=== PATIENT | female | born 1970 | race Hispanic/Latino ===

== ENCOUNTER 2019-08-11 01:52 | Emergency (ER) | payer SELFPAY ==
[2019-08-11 02:40] LABS: #Basophils 0.1 thou/uL (0.0-0.2); #Eosinphils 0.4 thou/uL (0.0-0.7); #Lymphocytes 1.9 thou/uL (1.20-3.40); #Monocytes 0.9 thou/uL (0.11-0.59); #Neutrophils 7.2 thou/uL (1.40-6.50); %Basophils 0.6 % (0.0-1.0); %Lymphocytes 18.5 % (21.0-51.0); %Monocytes 8.2 % (0.0-10.0); %Neutrophils 68.7 % (42.0-75.0); Hemoglobin 12.1 g/dL (12.0-16.0); Mean Corpuscular Hemoglobin 27.2 pg (27.0-31.0); Mean Corpuscular Volume 85.2 fL (78.0-98.0); Mean Platelet Volume 10.4 fL (7.4-10.4); Platelet Count 201 thou/uL (130-400); RBC Distribution Width 13.4 % (11.5-14.5); Red Blood Cell (RBC) Count 4.46 mill/uL (4.20-5.40); White Blood Cell (WBC) Count 10.5 thou/uL (4.8-10.8)
[2019-08-11 02:59] LABS: ALT (SGPT) 20 U/L (8-55); AST (SGOT) 17 U/L (5-34); Albumin 3.8 g/dL (3.5-5.0); Alkaline Phosphatase 98 U/L (40-110); Anion Gap 12 mmol/L (10-20); BUN (Urea Nitrogen) 10 mg/dL (7.0-18.7); Bilirubin, Total 0.7 mg/dL (0.2-1.2); Calc. Creatinine Clearance 0 mL/min (70-130); Carbon Dioxide 27 mmol/L (22-29); Chloride 103 mmol/L (98-107); Estimated GFR-MDRD 86; Globulin 4.5 g/dL (2.4-3.5); Glucose 174 mg/dL (70-105); Lipase 27 U/L (8-78); Protein, Total 8.3 g/dL (6.0-8.3); Sodium 138 mmol/L (136-145)
[2019-08-11] MEDS ORDERED: Acetaminophen 500 MG TAB ONE (03:21)
[2019-08-11] MEDS ORDERED: Lidocaine Viscous Sol 2% 15 ml UD Cup ONE (03:47)
[2019-08-11] MEDS ORDERED: Mag-Al 1200 mg/1200 mg/30 ML UDCUP ONE (03:47)
[2019-08-11 03:52] LABS: Pregnancy Test - Urine (BHCG) Negative (Negative); Pregu Control Background? CLEAR/WHITE (CLR/WHITE); Pregu Control Bar Appear? YES (CONTROL BAR)
[2019-08-11 03:57] LABS: Bilirubin Negative (Negative); Blood, Urine Negative (Negative); Clarity Turbid (Clear); Glucose, Urine (Dipstick) Normal (Negative); Ketone, Urine Negative (Negative); Leukocyte 75 Leu/uL (Negative); Nitrite Negative (Negative); Protein, Urine (Dipstick) 10 mg/dL (Neg-Trace); Specific Gravity, Urine 1.022 (1.002-1.036); WBC/HPF 21-50 HPF (0-3)
[2019-08-11 04:00] LABS: Bacteria/HPF 1+ HPF (None Seen)
[2019-08-11 04:04] LABS: Specific Gravity 1.022 (1.002-1.036)
== END 2019-08-11 04:34 | disposition home or self-care (01) ==
LOC: ERS 01:52
DX: N39.0 Urinary tract infection, site not specified (principal); R10.13 Epigastric pain; E66.9 Obesity, unspecified; I10 Essential (primary) hypertension; E11.9 Type 2 diabetes mellitus without complications; M06.9 Rheumatoid arthritis, unspecified; M10.9 Gout, unspecified; Z86.711 Personal history of pulmonary embolism; F41.9 Anxiety disorder, unspecified; F32.9 Major depressive disorder, single episode, unspecified; Z87.891 Personal history of nicotine dependence; Z79.84 Long term (current) use of oral hypoglycemic drugs; Z79.899 Other long term (current) drug therapy
CPT/HCPCS: 36415; 80053; 81003; 81015; 81025; 83690; 85025; 99284

== ENCOUNTER 2019-08-30 19:54 | Emergency (ER) | payer OTHER ==
[2019-08-30] MEDS ORDERED: Mag-Al 1200 mg/1200 mg/30 ML UDCUP ONE (20:24)
[2019-08-30] MEDS ORDERED: Ondansetron PF 4 MG/2 ML Vial ONE ×2 (20:24→23:29)
[2019-08-30] MEDS ORDERED: Lidocaine Viscous Sol 2% 15 ml UD Cup ONE (20:24)
[2019-08-30 20:30] LABS: #Eosinphils 0.1 thou/uL (0.0-0.7); #Lymphocytes 1.8 thou/uL (1.20-3.40); #Monocytes 0.6 thou/uL (0.11-0.59); #Neutrophils 7.6 thou/uL (1.40-6.50); %Basophils 0.3 % (0.0-1.0); %Eosinophils 1.4 % (0.0-10.0); %Lymphocytes 17.9 % (21.0-51.0); %Monocytes 6.2 % (0.0-10.0); %Neutrophils 74.3 % (42.0-75.0); Hemoglobin 14.1 g/dL (12.0-16.0); Mean Corpuscular HGB CONC 32.4 g/dL (32.0-36.0); Mean Corpuscular Hemoglobin 27.6 pg (27.0-31.0); Mean Corpuscular Volume 85.2 fL (78.0-98.0); Platelet Count 239 thou/uL (130-400); RBC Distribution Width 13.9 % (11.5-14.5); Red Blood Cell (RBC) Count 5.11 mill/uL (4.20-5.40); White Blood Cell (WBC) Count 10.2 thou/uL (4.8-10.8)
[2019-08-30 20:54] LABS: ALT (SGPT) 45 U/L (8-55); AST (SGOT) 39 U/L (5-34); Albumin 4.1 g/dL (3.5-5.0); Alkaline Phosphatase 98 U/L (40-110); Anion Gap 18 mmol/L (10-20); BUN (Urea Nitrogen) 16 mg/dL (7.0-18.7); Bilirubin, Total 0.9 mg/dL (0.2-1.2); Calc. Creatinine Clearance 0 mL/min (70-130); Calcium 9.4 mg/dL (7.8-10.44); Carbon Dioxide 21 mmol/L (22-29); Chloride 104 mmol/L (98-107); Estimated GFR-MDRD 80; Globulin 5.6 g/dL (2.4-3.5); Glucose 148 mg/dL (70-105); Lipase 20 U/L (8-78); Potassium 4.5 mmol/L (3.5-5.1); Protein, Total 9.7 g/dL (6.0-8.3); Sodium 138 mmol/L (136-145)
[2019-08-30 21:01] LABS: Bacteria/HPF 3+ HPF (None Seen); Bilirubin Negative (Negative); Blood, Urine 1+ (Negative); Clarity Clear (Clear); Glucose, Urine (Dipstick) Normal (Negative); Ketone, Urine Negative (Negative); Leukocyte 25 Leu/uL (Negative); Mucous/LPF 1+ LPF (<2+); Nitrite 2+ (Negative); Pregnancy Test - Urine (BHCG) Negative (Negative); Pregu Control Background? CLEAR/WHITE (CLR/WHITE); Pregu Control Bar Appear? YES (CONTROL BAR); Protein, Urine (Dipstick) 10 mg/dL (Neg-Trace); Specific Gravity 1.025 (1.002-1.036); Specific Gravity, Urine 1.025 (1.002-1.036); Squamous Epithelial 0-3 HPF (0-3); Urobilinogen Normal mg/dL (Less than 2); pH, Urine 5.5 (5.0-9.0)
[2019-08-31 12:25] LABS: SARS-CoV-2 MS2 Positive; SARS-CoV-2 N Gene Negative; SARS-CoV-2 S Gene Negative; SARS-CoV-2 by NAA Not Detected (NotDetected); SARS-CoV-2 orf1ab Negative
== END 2019-08-30 23:35 | disposition home or self-care (01) ==
LOC: ERS 19:54
DX: N39.0 Urinary tract infection, site not specified (principal); Z20.828 Contact with and (suspected) exposure to other viral communicable diseases; E66.01 Morbid (severe) obesity due to excess calories; I10 Essential (primary) hypertension; M79.7 Fibromyalgia; E11.9 Type 2 diabetes mellitus without complications; M06.9 Rheumatoid arthritis, unspecified; M10.9 Gout, unspecified; F41.9 Anxiety disorder, unspecified; F32.9 Major depressive disorder, single episode, unspecified; Z86.711 Personal history of pulmonary embolism; Z87.891 Personal history of nicotine dependence; Z79.899 Other long term (current) drug therapy
CPT/HCPCS: 80053; 81003; 81015; 81025; 83690; 85025; 87077; 87086; 87186; 87635; 93005; 96361; 96374; J2405; U0003

== ENCOUNTER 2020-11-08 14:49 | Outpatient (CLI) | payer OTHER ==
[2020-11-09 00:41] LABS: SARS-CoV-2 PCR by NAA Not Detected (NotDetected)
== END 2020-11-08 14:50 | disposition home or self-care (01) ==
LOC: LABBT 14:49
PROVIDERS: ATTEND Internal Medicine Gastroenterology
DX: Z01.812 Encounter for preprocedural laboratory examination (principal); Z12.11 Encounter for screening for malignant neoplasm of colon; Z20.822 Contact with and (suspected) exposure to COVID-19
CPT/HCPCS: U0003; U0005

== ENCOUNTER 2020-11-11 05:49 | Day surgery (SDC) | payer OTHER ==
[2020-11-10 09:20] VITALS: BMI 74.7
== END 2020-11-11 06:20 | disposition home or self-care (01) ==
LOC: SDC 05:49
PROVIDERS: ATTEND Internal Medicine Gastroenterology
DX: Z12.11 Encounter for screening for malignant neoplasm of colon (principal); Z53.09 Procedure and treatment not carried out because of other contraindication; Z88.5 Allergy status to narcotic agent

== ENCOUNTER 2021-01-04 14:45 | Outpatient (CLI) | payer OTHER ==
[2021-01-05 01:32] LABS: SARS-CoV-2 PCR by NAA Not Detected (NotDetected)
== END 2021-01-04 14:46 | disposition home or self-care (01) ==
LOC: LABBT 14:45
PROVIDERS: ATTEND Internal Medicine Gastroenterology
DX: Z01.812 Encounter for preprocedural laboratory examination (principal); Z12.11 Encounter for screening for malignant neoplasm of colon; Z20.822 Contact with and (suspected) exposure to COVID-19
CPT/HCPCS: U0003; U0005

== ENCOUNTER 2021-01-07 15:36 | Emergency (ER) | payer OTHER ==
[~2021-01-07 15:36] MED LIST: Iopamidol-370 76% 500 ML 1 ML ONE
[2021-01-07 16:13] LABS: #Eosinphils 0.3 thou/uL (0.0-0.7); #Lymphocytes 2.9 thou/uL (1.20-3.40); #Monocytes 0.8 thou/uL (0.11-0.59); #Neutrophils 7.4 thou/uL (1.40-6.50); %Basophils 0.2 % (0.0-1.0); %Eosinophils 2.5 % (0.0-10.0); %Lymphocytes 25.3 % (21.0-51.0); %Monocytes 7.1 % (0.0-10.0); %Neutrophils 64.9 % (42.0-75.0); Hemoglobin 14.3 g/dL (12.0-16.0); Mean Corpuscular HGB CONC 32.6 g/dL (32.0-36.0); Mean Corpuscular Hemoglobin 28.4 pg (27.0-31.0); Mean Corpuscular Volume 87.1 fL (78.0-98.0); Mean Platelet Volume 9.6 fL (7.4-10.4); Platelet Count 221 thou/uL (130-400); RBC Distribution Width 13.7 % (11.5-14.5); Red Blood Cell (RBC) Count 5.02 mill/uL (4.20-5.40); White Blood Cell (WBC) Count 11.4 thou/uL (4.8-10.8)
[2021-01-07 16:54] LABS: ALT (SGPT) 20 U/L (8-55); AST (SGOT) 16 U/L (5-34); Alkaline Phosphatase 107 U/L (40-110); Anion Gap 16 mmol/L (10-20); BUN (Urea Nitrogen) 11 mg/dL (7.0-18.7); Calc. Creatinine Clearance 0 mL/min (70-130); Calcium 9.7 mg/dL (7.8-10.44); Carbon Dioxide 24 mmol/L (22-29); Chloride 105 mmol/L (98-107); Globulin 4.3 g/dL (2.4-3.5); Glucose 109 mg/dL (70-105); Potassium 3.8 mmol/L (3.5-5.1); Protein, Total 8.3 g/dL (6.0-8.3); Sodium 141 mmol/L (136-145)
[2021-01-07] MEDS ORDERED: Acetaminophen 500 MG TAB ONE (18:01)
== END 2021-01-07 18:31 | disposition home or self-care (01) ==
LOC: ERS 15:36
DX: R07.89 Other chest pain (principal); E11.9 Type 2 diabetes mellitus without complications; I10 Essential (primary) hypertension; M10.9 Gout, unspecified; Z86.711 Personal history of pulmonary embolism; F17.210 Nicotine dependence, cigarettes, uncomplicated; Z79.899 Other long term (current) drug therapy; Z79.84 Long term (current) use of oral hypoglycemic drugs; Z79.01 Long term (current) use of anticoagulants
CPT/HCPCS: 36415; 71045; 71275; 80053; 83880; 84484; 85025; 93005; Q9967

== ENCOUNTER 2021-03-06 14:53 | Emergency (ER) | payer OTHER ==
[2021-03-06 16:37] LABS: #Eosinphils 0.4 thou/uL (0.0-0.7); #Lymphocytes 2.1 thou/uL (1.20-3.40); #Monocytes 0.7 thou/uL (0.11-0.59); #Neutrophils 7.7 thou/uL (1.40-6.50); %Basophils 0.1 % (0.0-1.0); %Eosinophils 3.6 % (0.0-10.0); %Lymphocytes 19.6 % (21.0-51.0); %Monocytes 6.4 % (0.0-10.0); %Neutrophils 70.4 % (42.0-75.0); Hemoglobin 14.3 g/dL (12.0-16.0); Mean Corpuscular Hemoglobin 27.7 pg (27.0-31.0); Mean Corpuscular Volume 86.4 fL (78.0-98.0); Platelet Count 212 thou/uL (130-400); RBC Distribution Width 13.4 % (11.5-14.5); Red Blood Cell (RBC) Count 5.15 mill/uL (4.20-5.40); White Blood Cell (WBC) Count 10.9 thou/uL (4.8-10.8)
[2021-03-06 16:57] LABS: ALT (SGPT) 17 U/L (8-55); AST (SGOT) 13 U/L (5-34); Albumin 4.1 g/dL (3.5-5.0); Alkaline Phosphatase 107 U/L (40-110); Anion Gap 16 mmol/L (10-20); BUN (Urea Nitrogen) 18 mg/dL (7.0-18.7); Bilirubin, Total 0.6 mg/dL (0.2-1.2); Calc. Creatinine Clearance 0 mL/min (70-130); Calcium 9.5 mg/dL (7.8-10.44); Carbon Dioxide 25 mmol/L (22-29); Chloride 103 mmol/L (98-107); Globulin 4.2 g/dL (2.4-3.5); Glucose 119 mg/dL (70-105); Potassium 4.2 mmol/L (3.5-5.1); Protein, Total 8.3 g/dL (6.0-8.3); Sodium 140 mmol/L (136-145)
[2021-03-06] MEDS ORDERED: Cyclobenzaprine 10 MG TAB ONE (17:48)
[2021-03-06] MEDS ORDERED: Ibuprofen 200 MG TAB ONE (17:48)
== END 2021-03-06 18:30 | disposition home or self-care (01) ==
LOC: ERS 14:53
DX: M54.12 Radiculopathy, cervical region (principal); E11.9 Type 2 diabetes mellitus without complications; M10.9 Gout, unspecified; F10.129 Alcohol abuse with intoxication, unspecified
CPT/HCPCS: 36415; 71045; 80053; 84484; 85025; 93005; 94760

== ENCOUNTER 2021-08-08 22:36 | Observation (INO) | payer OTHER ==
[2021-08-08] MEDS ORDERED: Ondansetron PF 4 MG/2 ML Vial ONE (22:48)
[2021-08-08 23:01] LABS: #Basophils 0.1 thou/uL (0.0-0.2); #Eosinphils 0.4 thou/uL (0.0-0.7); #Lymphocytes 2.9 thou/uL (1.20-3.40); #Neutrophils 7.1 thou/uL (1.40-6.50); %Basophils 0.5 % (0.0-1.0); %Eosinophils 3.1 % (0.0-10.0); %Lymphocytes 25.1 % (21.0-51.0); %Monocytes 9.1 % (0.0-10.0); %Neutrophils 62.2 % (42.0-75.0); Hemoglobin 14.1 g/dL (12.0-16.0); Mean Corpuscular HGB CONC 32.9 g/dL (32.0-36.0); Mean Corpuscular Hemoglobin 28.7 pg (27.0-31.0); Mean Corpuscular Volume 87.2 fL (78.0-98.0); Mean Platelet Volume 10.8 fL (7.4-10.4); Platelet Count 179 thou/uL (130-400); RBC Distribution Width 13.2 % (11.5-14.5); Red Blood Cell (RBC) Count 4.93 mill/uL (4.20-5.40); White Blood Cell (WBC) Count 11.4 thou/uL (4.8-10.8)
[2021-08-08 23:18] LABS: ALT (SGPT) 18 U/L (8-55); AST (SGOT) 14 U/L (5-34); Alkaline Phosphatase 102 U/L (40-110); Anion Gap 15 mmol/L (10-20); BUN (Urea Nitrogen) 11 mg/dL (7.0-18.7); Bilirubin, Total 0.8 mg/dL (0.2-1.2); CK (CPK) 20 U/L (29-168); Calc. Creatinine Clearance 0 mL/min (70-130); Calcium 9.7 mg/dL (7.8-10.44); Carbon Dioxide 23 mmol/L (22-29); Chloride 105 mmol/L (98-107); Estimated GFR 109; Globulin 4.4 g/dL (2.4-3.5); Glucose 103 mg/dL (70-105); Potassium 3.8 mmol/L (3.5-5.1); Protein, Total 8.4 g/dL (6.0-8.3); Sodium 139 mmol/L (136-145)
[2021-08-09] MEDS ORDERED: Acetaminophen 500 MG TAB ONE (01:03)
[2021-08-09] MEDS ORDERED: Ondansetron ODT 4 MG TAB PO PRN (01:21)
[2021-08-09] MEDS ORDERED: Acetaminophen 325 MG TAB PO PRN (01:21)
[2021-08-09] MEDS ORDERED: HumaLOG 300 UNITS/3 ML VIAL SC PRN ×2 (01:21)
[2021-08-09] MEDS ORDERED: Dextrose 50% Abboject 50 ML SYRINGE SLOW IVP PRN (01:21)
[2021-08-09] MEDS ORDERED: Dextrose 5% in Water 1,000 ML IV PRN (01:21)
[2021-08-09] MEDS ORDERED: Dicyclomine 20 MG TAB PO PRN (01:52)
[2021-08-09 02:06] LABS: #Basophils 0.1 thou/uL (0.0-0.2); #Eosinphils 0.4 thou/uL (0.0-0.7); #Lymphocytes 2.6 thou/uL (1.20-3.40); #Monocytes 0.9 thou/uL (0.11-0.59); #Neutrophils 6.9 thou/uL (1.40-6.50); %Eosinophils 3.5 % (0.0-10.0); %Lymphocytes 23.9 % (21.0-51.0); %Monocytes 8.4 % (0.0-10.0); %Neutrophils 63.2 % (42.0-75.0); Hemoglobin 13.1 g/dL (12.0-16.0); Mean Corpuscular HGB CONC 31.1 g/dL (32.0-36.0); Mean Corpuscular Hemoglobin 27.6 pg (27.0-31.0); Mean Corpuscular Volume 88.8 fL (78.0-98.0); Mean Platelet Volume 10.7 fL (7.4-10.4); Platelet Count 181 thou/uL (130-400); RBC Distribution Width 13.3 % (11.5-14.5); Red Blood Cell (RBC) Count 4.76 mill/uL (4.20-5.40); White Blood Cell (WBC) Count 10.9 thou/uL (4.8-10.8)
[2021-08-09 02:31] LABS: Troponin I Less than 0.010 ng/mL (< 0.028)
[2021-08-09 02:42] LABS: Anion Gap 15 mmol/L (10-20); BUN (Urea Nitrogen) 13 mg/dL (7.0-18.7); Calc. Creatinine Clearance 0 mL/min (70-130); Calcium 9.5 mg/dL (7.8-10.44); Carbon Dioxide 24 mmol/L (22-29); Chloride 106 mmol/L (98-107); Estimated GFR 109; Glucose 104 mg/dL (70-105); Potassium 3.8 mmol/L (3.5-5.1); Sodium 141 mmol/L (136-145)
[2021-08-09 03:23] VITALS: BMI 69.5
[2021-08-09] MEDS: SUMAtriptan Succinate 50 MG TAB PO PRN ×2 (05:03→21:11)
[2021-08-09 05:39] LABS: Troponin I Less than 0.010 ng/mL (< 0.028)
[2021-08-09] MEDS: Nicotine 14 MG PATCH TD SCH (06:31)
[2021-08-09] MEDS: metFORMIN 500 MG TAB PO SCH ×2 (07:53→16:18)
[2021-08-09] MEDS: Gabapentin 300 MG CAP PO SCH ×3 (08:41→21:11)
[2021-08-09] MEDS: Apixaban 5 MG TAB PO SCH ×2 (08:42→21:11)
[2021-08-09] MEDS: Furosemide 20 MG TAB PO SCH (08:42)
[2021-08-09] MEDS: busPIRone HCl 10 MG TAB PO SCH ×3 (08:42→21:11)
[2021-08-09] MEDS: Rosuvastatin 10 MG TAB PO SCH (08:42)
[2021-08-09] MEDS: Losartan 25 MG TAB PO SCH (08:42)
[2021-08-09] MEDS: FLUoxetine HCl 20 MG CAP PO SCH (08:42)
[2021-08-09] MEDS ORDERED: Regadenoson 0.4 MG/5 ML SYRINGE ONE (08:45)
[2021-08-09] MEDS ORDERED: hydrALAZINE 20 MG/ML VIAL SLOW IVP SCH (14:00)
[2021-08-09] MEDS ORDERED: Amlodipine 5 MG TAB PO SCH (15:45)
[2021-08-10] MEDS: Nicotine 14 MG PATCH TD SCH (06:11)
[2021-08-10] MEDS: metFORMIN 500 MG TAB PO SCH (08:15)
[2021-08-10] MEDS: Gabapentin 300 MG CAP PO SCH ×2 (08:15→15:13)
[2021-08-10] MEDS: FLUoxetine HCl 20 MG CAP PO SCH ×2 (08:16→08:17)
[2021-08-10] MEDS: Rosuvastatin 10 MG TAB PO SCH (08:16)
[2021-08-10] MEDS: Apixaban 5 MG TAB PO SCH (08:16)
[2021-08-10] MEDS: Furosemide 20 MG TAB PO SCH (08:17)
[2021-08-10] MEDS: Losartan 25 MG TAB PO SCH (08:17)
[2021-08-10] MEDS: busPIRone HCl 10 MG TAB PO SCH ×2 (08:17→15:13)
[2021-08-10] MEDS ORDERED: Amlodipine 5 MG TAB PO SCH (09:00)
[2021-08-10] MEDS ORDERED: Cepastat Lozenges 1 LOZ PO PRN (12:00)
[2021-08-10 15:44] VITALS: BP 137/78; TEMP 97.9
[2021-08-10] MEDS ORDERED: guaiFENesin ER 600 MG TAB PO SCH (21:00)
== END 2021-08-10 17:21 | disposition home or self-care (01) ==
LOC: ERS 22:36 → 2SW 08-09 00:44
PROVIDERS: ADMIT Student in an Organized Health Care Education/Training Program; ATTEND Student in an Organized Health Care Education/Training Program
DX: R07.89 Other chest pain (principal); D72.829 Elevated white blood cell count, unspecified; I10 Essential (primary) hypertension; E78.5 Hyperlipidemia, unspecified; E11.42 Type 2 diabetes mellitus with diabetic polyneuropathy; F17.210 Nicotine dependence, cigarettes, uncomplicated; K58.9 Irritable bowel syndrome, unspecified; G43.909 Migraine, unspecified, not intractable, without status migrainosus; E66.9 Obesity, unspecified; Z68.44 Body mass index [BMI] 60.0-69.9, adult; Z86.711 Personal history of pulmonary embolism; Z86.718 Personal history of other venous thrombosis and embolism; Z79.01 Long term (current) use of anticoagulants; Z79.84 Long term (current) use of oral hypoglycemic drugs; Z79.899 Other long term (current) drug therapy; Z88.5 Allergy status to narcotic agent; Z20.822 Contact with and (suspected) exposure to COVID-19
CPT/HCPCS: 36415; 36416; 71045; 78452; 80048; 80053; 82550; 83690; 83880; 84484; 85025; 85379; 93005; 93017; A9500; G0378; J2405; J2785; U0003; U0005

== ENCOUNTER 2022-05-08 12:51 | Emergency (ER) | payer OTHER ==
[~2022-05-08 12:51] MED LIST changes: -Iopamidol-370 76% 500 ML 1 ML ONE; +Iopamidol-370 76% 500 ML MDV (1 ML CHARGE) ONE
[2022-05-08 13:37] LABS: #Basophils 0.1 thou/uL (0.0-0.2); #Eosinphils 0.2 thou/uL (0.0-0.7); #Lymphocytes 0.6 thou/uL (1.20-3.40); #Monocytes 0.6 thou/uL (0.11-0.59); #Neutrophils 13.7 thou/uL (1.40-6.50); %Basophils 0.4 % (0.0-1.0); %Eosinophils 1.6 % (0.0-10.0); %Lymphocytes 4.1 % (21.0-51.0); %Neutrophils 89.9 % (42.0-75.0); Hemoglobin 12.8 g/dL (12.0-16.0); Mean Corpuscular HGB CONC 32.7 g/dL (32.0-36.0); Mean Corpuscular Hemoglobin 28.6 pg (27.0-31.0); Mean Corpuscular Volume 87.3 fl (78.0-98.0); Mean Platelet Volume 10.3 fL (7.4-10.4); Platelet Count 178 10x3/uL (130-400); RBC Distribution Width 13.3 % (11.5-14.5); Red Blood Cell (RBC) Count 4.49 mill/uL (4.20-5.40); White Blood Cell (WBC) Count 15.2 10x3/uL (4.8-10.8)
[2022-05-08] MEDS ORDERED: Ondansetron PF 4 MG/2 ML Vial ONE (13:58)
[2022-05-08] MEDS ORDERED: Morphine 4 MG/ML VIAL ONE ×2 (13:58→15:07)
[2022-05-08 13:59] LABS: ALT (SGPT) 25 U/L (8-55); AST (SGOT) 20 U/L (5-34); Albumin 4.5 g/dL (3.5-5.0); Alkaline Phosphatase 97 U/L (40-110); Anion Gap 13 mmol/L (10-20); BUN (Urea Nitrogen) 17 mg/dL (7.0-18.7); Bilirubin, Total 0.9 mg/dL (0.2-1.2); Calc. Creatinine Clearance 0 mL/min (70-130); Calcium 9.4 mg/dL (7.8-10.44); Carbon Dioxide 22 mmol/L (22-29); Chloride 106 mmol/L (98-107); Estimated GFR 108; Globulin 4.1 g/dL (2.4-3.5); Glucose 139 mg/dL (70-105); Lipase 18 U/L (8-78); Potassium 3.8 mmol/L (3.5-5.1); Protein, Total 8.6 g/dL (6.0-8.3); Sodium 137 mmol/L (136-145)
[2022-05-08 15:25] LABS: Bilirubin Negative (Negative); Blood, Urine Negative (Negative); Clarity Clear (Clear); Glucose, Urine (Dipstick) Normal (Negative); Ketone, Urine Negative (Negative); Leukocyte Negative Leu/uL (Negative); Nitrite Negative (Negative); Protein, Urine (Dipstick) Negative (Neg-Trace); Specific Gravity, Urine 1.021 (1.002-1.036); Urobilinogen Normal mg/dL (Less than 2); pH, Urine 6.5 (5.0-9.0)
[2022-05-08 15:26] LABS: Pregnancy Test - Urine (BHCG) Negative (Negative); Pregu Control Background? CLEAR/WHITE (CLR/WHITE); Pregu Control Bar Appear? YES (CONTROL BAR)
[2022-05-08] MEDS ORDERED: Metoclopramide HCl 10 MG/2 ML VIAL ONE (18:21)
[2022-05-08] MEDS ORDERED: Ketorolac Tromethamine 30 MG/ML VIAL ONE (18:21)
== END 2022-05-08 21:11 | disposition home or self-care (01) ==
LOC: ERS 12:51
DX: R11.2 Nausea with vomiting, unspecified (principal); R10.13 Epigastric pain; D72.829 Elevated white blood cell count, unspecified; I11.0 Hypertensive heart disease with heart failure; I50.9 Heart failure, unspecified; E11.9 Type 2 diabetes mellitus without complications; F17.210 Nicotine dependence, cigarettes, uncomplicated; Z79.01 Long term (current) use of anticoagulants; Z79.899 Other long term (current) drug therapy; Z79.84 Long term (current) use of oral hypoglycemic drugs
CPT/HCPCS: 36415; 74177; 80053; 81003; 81025; 83605; 83690; 85025; 93005; 96365; 96366; 96375; 96376; J1885; J2270; J2405; J2765; Q9967

== ENCOUNTER 2022-06-13 20:26 | Observation (INO) | payer OTHER ==
[2022-06-13 22:03] LABS: #Eosinphils 0.4 thou/uL (0.0-0.7); #Monocytes 0.9 thou/uL (0.11-0.59); #Neutrophils 6.7 thou/uL (1.40-6.50); %Basophils 0.4 % (0.0-1.0); %Eosinophils 3.4 % (0.0-10.0); %Lymphocytes 24.8 % (21.0-51.0); %Monocytes 8.1 % (0.0-10.0); %Neutrophils 62.9 % (42.0-75.0); Hemoglobin 11.9 g/dL (12.0-16.0); Mean Corpuscular HGB CONC 31.4 g/dL (32.0-36.0); Mean Corpuscular Hemoglobin 26.9 pg (27.0-31.0); Mean Corpuscular Volume 85.6 fl (78.0-98.0); Mean Platelet Volume 12.2 fL (7.4-10.4); Platelet Count 198 10x3/uL (130-400); RBC Distribution Width 14.7 % (11.5-14.5); Red Blood Cell (RBC) Count 4.43 mill/uL (4.20-5.40); White Blood Cell (WBC) Count 10.7 10x3/uL (4.8-10.8)
[2022-06-13 22:19] LABS: BHCG - Serum Negative (NEGATIVE); Pregs Control Background? CLEAR/WHITE (CLR/WHITE); Pregs Control Bar Appear? YES (CONTROL BAR)
[2022-06-13] MEDS ORDERED: Acetaminophen 500 MG TAB ONE (22:33)
[2022-06-13] MEDS ORDERED: Dextrose 5% in Water 1,000 ML IV PRN (23:23)
[2022-06-13] MEDS ORDERED: Dextrose 50% Abboject 50 ML SYRINGE SLOW IVP PRN (23:23)
[2022-06-13] MEDS ORDERED: Ondansetron ODT 4 MG TAB PO PRN (23:48)
[2022-06-13] MEDS ORDERED: Ondansetron PF 4 MG/2 ML Vial IVP PRN (23:48)
[2022-06-13] MEDS ORDERED: Acetaminophen 325 MG TAB PO PRN (23:48)
[2022-06-13] MEDS ORDERED: HumaLOG 300 UNITS/3 ML VIAL SC PRN ×2 (23:49)
[2022-06-13] MEDS ORDERED: Aspirin Chewable 81 MG TAB ONE (23:51)
[2022-06-13] MEDS ORDERED: Morphine 2 MG/ML VIAL SLOW IVP PRN (23:57)
[2022-06-14 00:05] VITALS: BMI 70.8
[2022-06-14] MEDS ORDERED: Nitroglycerin 2% Ointment 1 INCH/1 GM Packet TOP SCH ×2 (00:15→09:00)
[2022-06-14] MEDS ORDERED: Dulaglutide [Trulicity] 0.75 MG/0.5 ML Pen.Injctr SC SCH (00:30)
[2022-06-14 00:32] LABS: ALT (SGPT) 21 U/L (8-55); AST (SGOT) 17 U/L (5-34); Albumin 3.9 g/dL (3.5-5.0); Alkaline Phosphatase 86 U/L (40-110); Anion Gap 16 mmol/L (10-20); BUN (Urea Nitrogen) 24 mg/dL (7.0-18.7); Bilirubin, Total 0.5 mg/dL (0.2-1.2); Calc. Creatinine Clearance 253 mL/min (70-130); Calcium 9.5 mg/dL (7.8-10.44); Carbon Dioxide 18 mmol/L (22-29); Chloride 108 mmol/L (98-107); Estimated GFR 95; Globulin 4.4 g/dL (2.4-3.5); Glucose 113 mg/dL (70-105); Potassium 4.2 mmol/L (3.5-5.1); Protein, Total 8.3 g/dL (6.0-8.3); Sodium 138 mmol/L (136-145)
[2022-06-14] MEDS ORDERED: SUMAtriptan Succinate 50 MG TAB PO PRN (00:38)
[2022-06-14] MEDS ORDERED: QUEtiapine 25 MG TAB PO SCH ×2 (00:45→21:00)
[2022-06-14] MEDS ORDERED: Dicyclomine 20 MG TAB PO SCH (00:45)
[2022-06-14] MEDS ORDERED: Gabapentin 300 MG CAP PO SCH (00:45)
[2022-06-14] MEDS ORDERED: Apixaban 5 MG TAB PO SCH (00:45)
[2022-06-14] MEDS ORDERED: metFORMIN 500 MG TAB PO SCH (00:45)
[2022-06-14 01:42] LABS: Troponin I Less than 0.010 ng/mL (< 0.028)
[2022-06-14 05:14] LABS: #Eosinphils 0.4 thou/uL (0.0-0.7); #Monocytes 0.9 thou/uL (0.11-0.59); %Basophils 0.4 % (0.0-1.0); %Eosinophils 4.6 % (0.0-10.0); %Lymphocytes 33.5 % (21.0-51.0); %Monocytes 8.8 % (0.0-10.0); %Neutrophils 52.4 % (42.0-75.0); Hemoglobin 10.9 g/dL (12.0-16.0); Mean Corpuscular HGB CONC 31.6 g/dL (32.0-36.0); Mean Corpuscular Hemoglobin 27.2 pg (27.0-31.0); Mean Platelet Volume 12.1 fL (7.4-10.4); Platelet Count 201 10x3/uL (130-400); RBC Distribution Width 14.6 % (11.5-14.5); Red Blood Cell (RBC) Count 4.01 mill/uL (4.20-5.40); White Blood Cell (WBC) Count 9.6 10x3/uL (4.8-10.8)
[2022-06-14 05:40] LABS: ALT (SGPT) 17 U/L (8-55); AST (SGOT) 11 U/L (5-34); Albumin 3.7 g/dL (3.5-5.0); Alkaline Phosphatase 83 U/L (40-110); Anion Gap 12 mmol/L (10-20); BUN (Urea Nitrogen) 22 mg/dL (7.0-18.7); Bilirubin, Total 0.4 mg/dL (0.2-1.2); Calc. Creatinine Clearance 295 mL/min (70-130); Calcium 8.9 mg/dL (7.8-10.44); Carbon Dioxide 23 mmol/L (22-29); Cardiac Risk 2.7 (Less than 4.5); Chloride 106 mmol/L (98-107); Cholesterol 125 mg/dl (< 200 Desired); Estimated GFR 107; Globulin 3.6 g/dL (2.4-3.5); Glucose 107 mg/dL (70-105); HDL Cholesterol 47 mg/dL (>60 Neg Risk); LDL Cholesterol, Calculated 60 mg/dL; Potassium 3.9 mmol/L (3.5-5.1); Protein, Total 7.3 g/dL (6.0-8.3); Sodium 137 mmol/L (136-145); Triglycerides 91 mg/dL (Less than 150)
[2022-06-14 05:41] LABS: Troponin I Less than 0.010 ng/mL (< 0.028)
[2022-06-14] MEDS: FLUoxetine HCl 20 MG CAP PO SCH (08:16)
[2022-06-14] MEDS: Gabapentin 300 MG CAP PO SCH ×3 (08:17→20:47)
[2022-06-14] MEDS ORDERED: Rosuvastatin 10 MG TAB PO SCH (09:00)
[2022-06-14] MEDS ORDERED: hydrOXYzine 10 MG TAB PO SCH ×2 (09:00→21:00)
[2022-06-14] MEDS ORDERED: Regadenoson 0.4 MG/5 ML SYRINGE ONE (09:41)
[2022-06-14] MEDS: metFORMIN 500 MG TAB PO SCH ×2 (11:35→17:20)
[2022-06-14] MEDS: Apixaban 5 MG TAB PO SCH ×2 (11:36→20:47)
[2022-06-14] MEDS: Acetaminophen 500 MG TAB PO PRN ×2 (12:00→20:48)
[2022-06-14] MEDS: Amlodipine 5 MG TAB PO SCH (14:48)
[2022-06-14] MEDS: Losartan 25 MG TAB PO SCH (14:49)
[2022-06-14] MEDS: Furosemide 20 MG TAB PO SCH (14:49)
[2022-06-14] MEDS: lamoTRIgine 25 MG TAB PO SCH (14:49)
[2022-06-14] MEDS: Dicyclomine 20 MG TAB PO PRN ×2 (14:55→20:48)
[2022-06-14] MEDS ORDERED: Rosuvastatin 20 MG TAB PO SCH (21:00)
[2022-06-15 04:34] LABS: #Eosinphils 0.4 thou/uL (0.0-0.7); #Monocytes 0.7 thou/uL (0.11-0.59); #Neutrophils 4.5 thou/uL (1.40-6.50); %Basophils 0.3 % (0.0-1.0); %Eosinophils 4.4 % (0.0-10.0); %Lymphocytes 34.9 % (21.0-51.0); %Monocytes 7.8 % (0.0-10.0); %Neutrophils 52.4 % (42.0-75.0); Hemoglobin 11.7 g/dL (12.0-16.0); Mean Corpuscular HGB CONC 30.5 g/dL (32.0-36.0); Mean Corpuscular Hemoglobin 27.1 pg (27.0-31.0); Mean Platelet Volume 11.8 fL (7.4-10.4); Platelet Count 211 10x3/uL (130-400); RBC Distribution Width 14.7 % (11.5-14.5); Red Blood Cell (RBC) Count 4.32 mill/uL (4.20-5.40); White Blood Cell (WBC) Count 8.6 10x3/uL (4.8-10.8)
[2022-06-15 04:44] LABS: Mean Corpuscular Volume 88.9 fl (78.0-98.0)
[2022-06-15] MEDS ORDERED: hydrOXYzine 25 MG TAB PO PRN (07:59)
[2022-06-15] MEDS: Acetaminophen 500 MG TAB PO PRN (09:22)
[2022-06-15] MEDS: Amlodipine 5 MG TAB PO SCH (09:23)
[2022-06-15] MEDS: metFORMIN 500 MG TAB PO SCH ×2 (09:23→15:55)
[2022-06-15] MEDS: Gabapentin 300 MG CAP PO SCH ×2 (09:24→14:54)
[2022-06-15] MEDS: Losartan 25 MG TAB PO SCH (09:25)
[2022-06-15] MEDS: Apixaban 5 MG TAB PO SCH (09:25)
[2022-06-15] MEDS: Furosemide 20 MG TAB PO SCH (09:25)
[2022-06-15] MEDS: FLUoxetine HCl 20 MG CAP PO SCH (09:25)
[2022-06-15] MEDS: lamoTRIgine 25 MG TAB PO SCH (09:26)
[2022-06-15 14:45] VITALS: TEMP 97.8
[2022-06-15 15:39] VITALS: BP 130/72
== END 2022-06-15 18:10 | disposition home or self-care (01) ==
LOC: ERS 20:26 → 2SW 22:41
PROVIDERS: ADMIT Family Medicine; ATTEND Family Medicine
DX: R07.9 Chest pain, unspecified (principal); R51.9 Headache, unspecified; I10 Essential (primary) hypertension; E78.5 Hyperlipidemia, unspecified; E11.42 Type 2 diabetes mellitus with diabetic polyneuropathy; M79.672 Pain in left foot; F12.10 Cannabis abuse, uncomplicated; F17.210 Nicotine dependence, cigarettes, uncomplicated; L73.2 Hidradenitis suppurativa; I08.1 Rheumatic disorders of both mitral and tricuspid valves; E66.01 Morbid (severe) obesity due to excess calories; Z68.45 Body mass index [BMI] 70 or greater, adult; Z86.711 Personal history of pulmonary embolism; Z79.01 Long term (current) use of anticoagulants; Z79.1 Long term (current) use of non-steroidal anti-inflammatories (NSAID); Z79.84 Long term (current) use of oral hypoglycemic drugs; Z79.85 Long-term (current) use of injectable non-insulin antidiabetic drugs; Z79.899 Other long term (current) drug therapy
CPT/HCPCS: 36415; 36416; 71045; 78452; 80053; 80061; 84484; 84703; 85025; 93005; 93017; 93306; 96374; A9500; G0378; J2272; J2785

== ENCOUNTER 2022-09-04 05:50 | Day surgery (SDC) | payer OTHER ==
[2022-08-31 10:12] VITALS: BMI 70.1
[2022-09-04] MEDS ORDERED: PROPOFOL 200 MG/20 ML VIAL ONE (09:20)
[2022-09-04] MEDS ORDERED: Lidocaine 1% PF 5 ML VIAL ONE (09:20)
== END 2022-09-04 11:10 | disposition home or self-care (01) ==
LOC: SDC 05:50
PROVIDERS: ATTEND Internal Medicine
PROC: 0DBP8ZZ Excision of Rectum, Via Natural or Artificial Opening Endoscopic (ICD-10-PCS; principal; 2022-09-04)
DX: Z12.11 Encounter for screening for malignant neoplasm of colon (principal); D12.8 Benign neoplasm of rectum; K64.4 Residual hemorrhoidal skin tags; K64.8 Other hemorrhoids; E11.9 Type 2 diabetes mellitus without complications; K21.9 Gastro-esophageal reflux disease without esophagitis; E78.00 Pure hypercholesterolemia, unspecified; I10 Essential (primary) hypertension; E66.9 Obesity, unspecified; I26.99 Other pulmonary embolism without acute cor pulmonale; G47.30 Sleep apnea, unspecified; Z90.49 Acquired absence of other specified parts of digestive tract; Z79.84 Long term (current) use of oral hypoglycemic drugs; Z79.899 Other long term (current) drug therapy; Z79.01 Long term (current) use of anticoagulants; F17.200 Nicotine dependence, unspecified, uncomplicated; Z68.45 Body mass index [BMI] 70 or greater, adult
CPT/HCPCS: 88305; J2704

== ENCOUNTER 2022-11-29 22:59 | Emergency (ER) | payer OTHER ==
[2022-11-30 03:00] LABS: SARS-CoV-2 NAA Rapid Test DETECTED (NotDetected)
== END 2022-11-30 04:14 | disposition home or self-care (01) ==
LOC: ERS 22:59
DX: U07.1 COVID-19 (principal); E11.9 Type 2 diabetes mellitus without complications; I11.0 Hypertensive heart disease with heart failure; I50.9 Heart failure, unspecified; F17.210 Nicotine dependence, cigarettes, uncomplicated
CPT/HCPCS: 99283; U0002

== ENCOUNTER 2022-12-16 23:21 | Emergency (ER) | payer OTHER ==
[2022-12-17 00:08] LABS: #Eosinphils 0.6 thou/uL (0.0-0.7); #Monocytes 0.9 thou/uL (0.11-0.59); %Basophils 0.4 % (0.0-1.0); %Eosinophils 5.2 % (0.0-10.0); %Lymphocytes 29.7 % (21.0-51.0); %Monocytes 8.6 % (0.0-10.0); %Neutrophils 55.8 % (42.0-75.0); Hematocrit 43.3 % (36.0-47.0); Hemoglobin 13.4 g/dL (12.0-16.0); Mean Corpuscular HGB CONC 30.9 g/dL (32.0-36.0); Mean Corpuscular Volume 87.1 fl (78.0-98.0); Mean Platelet Volume 12.8 fL (7.4-10.4); Platelet Count 214 10x3/uL (130-400); RBC Distribution Width 15.5 % (11.5-14.5); Red Blood Cell (RBC) Count 4.97 mill/uL (4.20-5.40); White Blood Cell (WBC) Count 10.7 10x3/uL (4.8-10.8)
[2022-12-17 00:32] LABS: ALT (SGPT) 19 U/L (8-55); AST (SGOT) 15 U/L (5-34); Albumin 4.3 g/dL (3.5-5.0); Alkaline Phosphatase 86 U/L (40-110); Anion Gap 14 mmol/L (10-20); BUN (Urea Nitrogen) 14 mg/dL (7.0-18.7); Bilirubin, Total 0.5 mg/dL (0.2-1.2); Calc. Creatinine Clearance 0 mL/min (70-130); Calcium 9.6 mg/dL (7.8-10.44); Carbon Dioxide 24 mmol/L (22-29); Chloride 109 mmol/L (98-107); Estimated GFR 91; Globulin 4.1 g/dL (2.4-3.5); Glucose 116 mg/dL (70-105); Potassium 3.8 mmol/L (3.5-5.1); Protein, Total 8.4 g/dL (6.0-8.3); Sodium 143 mmol/L (136-145)
[2022-12-17] MEDS ORDERED: Dexamethasone 10 MG/ML VIAL ONE (01:22)
[2022-12-17] MEDS ORDERED: Metoclopramide HCl 10 MG/2 ML VIAL ONE (01:23)
[2022-12-17] MEDS ORDERED: diphenhydrAMINE 50 MG/ML VIAL ONE (01:23)
[2022-12-17] MEDS ORDERED: Ketorolac Tromethamine 30 MG/ML VIAL ONE (01:23)
[2022-12-17 01:40] LABS: Bilirubin Negative (Negative); Blood, Urine Negative (Negative); Clarity Clear (Clear); Glucose, Urine (Dipstick) Normal (Negative); Ketone, Urine Negative (Negative); Leukocyte 75 Leu/uL (Negative); Nitrite 2+ (Negative); Protein, Urine (Dipstick) Negative (Neg-Trace); Specific Gravity, Urine 1.019 (1.002-1.036); Urobilinogen Normal mg/dL (Less than 2)
[2022-12-17 01:45] LABS: Bacteria/HPF 4+ HPF (None Seen); CAUTI Indications for Culture Fever or rigors
[2022-12-17 01:46] LABS: Urine Culture Reflex No No
[2022-12-17 01:53] LABS: Troponin I Less than 0.010 ng/mL (< 0.028)
[2022-12-17 01:58] LABS: SARS-CoV-2 NAA Rapid Test Not Detected (NotDetected)
[2022-12-17] MEDS ORDERED: Sodium Chloride 0.9% 100 ML ONE (02:33)
[2022-12-17] MEDS ORDERED: cefTRIAXone (ROCEPHIN) 1 GM VIAL ONE (02:33)
== END 2022-12-17 03:10 | disposition home or self-care (01) ==
LOC: ERS 23:21
DX: N39.0 Urinary tract infection, site not specified (principal); G43.909 Migraine, unspecified, not intractable, without status migrainosus; I11.0 Hypertensive heart disease with heart failure; I50.9 Heart failure, unspecified; E11.9 Type 2 diabetes mellitus without complications; F17.210 Nicotine dependence, cigarettes, uncomplicated; Z79.84 Long term (current) use of oral hypoglycemic drugs; Z79.01 Long term (current) use of anticoagulants; Z79.899 Other long term (current) drug therapy
CPT/HCPCS: 36415; 71045; 80053; 81001; 83880; 84484; 85025; 85379; 87077; 87086; 87186; 93005; 96365; 96367; 96375; J0696; J1100; J1200; J1885; J2765; J3490

== ENCOUNTER 2023-03-20 23:37 | Emergency (ER) | payer OTHER ==
[2023-03-20] MEDS ORDERED: Aspirin Chewable 81 MG TAB ONE (23:54)
[2023-03-21 00:23] LABS: #Eosinphils 0.4 thou/uL (0.0-0.7); #Monocytes 0.7 thou/uL (0.11-0.59); #Neutrophils 5.7 thou/uL (1.40-6.50); %Basophils 0.3 % (0.0-1.0); %Eosinophils 4.1 % (0.0-10.0); %Lymphocytes 28.5 % (21.0-51.0); %Monocytes 7.4 % (0.0-10.0); %Neutrophils 59.5 % (42.0-75.0); Hemoglobin 12.3 g/dL (12.0-16.0); Mean Corpuscular HGB CONC 31.5 g/dL (32.0-36.0); Mean Corpuscular Hemoglobin 26.6 pg (27.0-31.0); Mean Corpuscular Volume 84.4 fl (78.0-98.0); Platelet Count 231 10x3/uL (130-400); RBC Distribution Width 15.7 % (11.5-14.5); Red Blood Cell (RBC) Count 4.62 mill/uL (4.20-5.40); White Blood Cell (WBC) Count 9.6 10x3/uL (4.8-10.8)
[2023-03-21] MEDS ORDERED: Ondansetron ODT 4 MG TAB ONE (00:37)
[2023-03-21] MEDS ORDERED: Nitroglycerin 0.4 MG TAB (25 Tab Bottle) ONE (00:38)
[2023-03-21 00:49] LABS: Troponin I Less than 0.010 ng/mL (< 0.028)
[2023-03-21 00:52] LABS: ALT (SGPT) 16 U/L (8-55); AST (SGOT) 17 U/L (5-34); Albumin 3.8 g/dL (3.5-5.0); Alkaline Phosphatase 96 U/L (40-110); Anion Gap 11 mmol/L (10-20); BUN (Urea Nitrogen) 12 mg/dL (7.0-18.7); Calc. Creatinine Clearance 0 mL/min (70-130); Calcium 9.2 mg/dL (7.8-10.44); Carbon Dioxide 27 mmol/L (22-29); Chloride 105 mmol/L (98-107); Estimated GFR 81; Globulin 4.3 g/dL (2.4-3.5); Glucose 107 mg/dL (70-105); Lipase 44 U/L (8-78); Magnesium 1.7 mg/dL (1.6-2.6); Potassium 3.9 mmol/L (3.5-5.1); Protein, Total 8.1 g/dL (6.0-8.3); Sodium 139 mmol/L (136-145)
[2023-03-21 02:21] LABS: Bilirubin, Total 0.5 mg/dL (0.2-1.2)
[2023-03-21] MEDS ORDERED: Lidocaine 2% Viscous 10 mL, Alum & Magn 30 mL SSW SCH (03:15)
[2023-03-21] MEDS ORDERED: HYDROcodone/Acetaminophen 5/325 mg Tablet ONE (03:39)
[2023-03-21 05:50] LABS: Troponin I Less than 0.010 ng/mL (< 0.028)
[2023-03-21] MEDS ORDERED: Iopamidol-370 76% 500 ML MDV (1 ML CHARGE) ONE (08:59)
== END 2023-03-21 06:10 | disposition home or self-care (01) ==
LOC: ERS 23:37
DX: R07.89 Other chest pain (principal); E66.9 Obesity, unspecified; I11.0 Hypertensive heart disease with heart failure; I50.9 Heart failure, unspecified; E11.9 Type 2 diabetes mellitus without complications; F17.210 Nicotine dependence, cigarettes, uncomplicated
CPT/HCPCS: 36415; 36416; 71045; 71275; 80053; 83690; 83735; 84484; 85025; 93005; Q0162

== ENCOUNTER 2023-07-23 12:03 | Outpatient (CLI) | payer OTHER ==
[2023-07-23 13:08] LABS: Hemoglobin 12.5 g/dL (12.0-15.5); Mean Corpuscular HGB CONC 32.9 g/dL (32.0-36.0); Mean Corpuscular Hemoglobin 27.5 pg (27.0-33.0); Mean Corpuscular Volume 83.5 fL (81.6-98.3); Mean Platelet Volume 12.2 fL (7.4-10.4); Platelet Count 212 10x3/uL (150-450); RBC Distribution Width 14.7 % (11.5-14.5); Red Blood Cell (RBC) Count 4.55 10x6/uL (3.90-5.03)
[2023-07-23 13:20] LABS: Anion Gap 12 mmol/L (10-20); BUN (Urea Nitrogen) 12 mg/dL (7.0-18.7); Calc. Creatinine Clearance 0 mL/min (70-130); Calcium 9.6 mg/dL (7.8-10.44); Carbon Dioxide 28 mmol/L (22-29); Chloride 106 mmol/L (98-107); Estimated GFR 104; Glucose 111 mg/dL (70-105); Potassium 3.9 mmol/L (3.5-5.1); Sodium 142 mmol/L (136-145)
[2023-07-23 13:31] LABS: BHCG - Serum Negative (NEGATIVE); Pregs Control Background? CLEAR/WHITE (CLR/WHITE); Pregs Control Bar Appear? YES (CONTROL BAR)
== END 2023-07-23 12:04 | disposition home or self-care (01) ==
LOC: LABBT 12:03
PROVIDERS: ATTEND Orthopaedic Surgery
DX: Z01.818 Encounter for other preprocedural examination (principal); G56.01 Carpal tunnel syndrome, right upper limb; R22.31 Localized swelling, mass and lump, right upper limb
CPT/HCPCS: 80048; 84703; 85027; 93005; 93010

== ENCOUNTER 2023-07-31 07:06 | Day surgery (SDC) | payer OTHER ==
[2023-07-23 12:27] VITALS: BMI 65.2
[2023-07-31] MEDS ORDERED: PROPOFOL 40 ML ONE (11:54)
[2023-07-31] MEDS ORDERED: Lidocaine 2% 6 ML (Jelly) SYR ONE (11:54)
[2023-07-31] MEDS ORDERED: Dexamethasone 20 MG/5 ML VIAL ONE (11:54)
[2023-07-31] MEDS ORDERED: Ondansetron PF 4 MG/2 ML Vial ONE (11:54)
[2023-07-31] MEDS ORDERED: Lidocaine 1% PF 5 ML VIAL ONE (11:54)
[2023-07-31] MEDS ORDERED: EPINEPHrine 1 MG/ML VIAL ONE (12:09)
[2023-07-31] MEDS ORDERED: Sodium Chloride 0.9% 100 ML ONE (12:09)
[2023-07-31] MEDS ORDERED: CEFAZOLIN 2 GM VIAL ONE (12:09)
[2023-07-31] MEDS ORDERED: Bupivacaine PF 0.5% 30 ML VIAL ONE (12:09)
[2023-07-31] MEDS ORDERED: fentaNYL 50 mcg/mL 1 mL Vial ONE (12:35)
== END 2023-07-31 15:14 | disposition home or self-care (01) ==
LOC: SDC 07:06
PROVIDERS: ATTEND Orthopaedic Surgery
PROC: 0JBJ0ZZ Excision of Right Hand Subcutaneous Tissue and Fascia, Open Approach (ICD-10-PCS; principal; 2023-07-31)
PROC: 01N50ZZ Release Median Nerve, Open Approach (ICD-10-PCS; principal; 2023-07-31)
DX: G56.01 Carpal tunnel syndrome, right upper limb (principal); D36.7 Benign neoplasm of other specified sites; I10 Essential (primary) hypertension; E11.9 Type 2 diabetes mellitus without complications; E78.2 Mixed hyperlipidemia; F32.A Depression, unspecified; Z86.711 Personal history of pulmonary embolism; Z90.49 Acquired absence of other specified parts of digestive tract; Z87.891 Personal history of nicotine dependence; Z88.5 Allergy status to narcotic agent; Z79.85 Long-term (current) use of injectable non-insulin antidiabetic drugs; Z79.899 Other long term (current) drug therapy; Z79.84 Long term (current) use of oral hypoglycemic drugs
CPT/HCPCS: 88305; J0171; J0665; J1100; J2405; J2704; J3010; J3490

== ENCOUNTER 2024-09-05 11:49 | Emergency (ER) | payer MEDICAID ==
[2024-09-05 13:37] LABS: #Basophils Less than 0.03 10x3/uL (0.0-0.2); #Eosinophils 0.18 10x3/uL (0.0-0.7); #Monocytes 0.23 10x3/uL (0.11-0.59); #Neutrophils 3.89 10x3/uL (1.40-6.50); %Basophils 0.0 % (0.0-1.0); %Eosinophils 2.9 % (0.0-10.0); %Lymphocytes 31.3 % (21.0-51.0); %Monocytes 3.7 % (0.0-10.0); %Neutrophils 61.8 % (42.0-75.0); Hematocrit 38.9 % (36.0-47.0); Hemoglobin 12.1 g/dL (12.0-16.0); Mean Corpuscular Hemoglobin 27.0 pg (27.0-31.0); Mean Corpuscular Volume 86.8 fL (78.0-98.0); Platelet Count 204 10x3/uL (130-400); Red Blood Cell (RBC) Count 4.48 mill/uL (4.20-5.40); White Blood Cell (WBC) Count 6.29 10x3/uL (4.8-10.8)
[2024-09-05 13:58] LABS: ALT (SGPT) 12 U/L (Less than 34); AST (SGOT) 15 U/L (11-34); Albumin 3.4 g/dL (3.1-4.5); Alkaline Phosphatase 85 U/L (40-110); Anion Gap 13 mmol/L (10-20); BUN (Urea Nitrogen) 24 mg/dL (9.8-20.1); Bilirubin, Total 0.5 mg/dL (0.3-1.2); Calc. Creatinine Clearance 0 mL/min (70-130); Calcium 9.1 mg/dL (7.8-10.44); Carbon Dioxide 21 mmol/L (22-29); Chloride 106 mmol/L (98-107); Globulin 4.9 g/dL (2.4-3.5); Glucose 99 mg/dL (70-105); Potassium 4.2 mmol/L (3.5-5.1); Sodium 136 mmol/L (136-145)
[2024-09-05 13:59] LABS: Acetaminophen Less than 10 mcg/mL (Less than 10); Salicylate Less than 8.0 mg/dL (Less than 8.0)
[2024-09-05 14:43] LABS: Cocaine Metabolite Screen Negative (Negative); THC/Cannabinoid Screen PRELIM POSITIVE (Negative); Tricyclic Screen Negative (Negative)
[2024-09-05 14:44] LABS: Bacteria/HPF None Seen HPF (None Seen); CAUTI Indications for Culture Alt mental st,lethar; Glucose, Urine (Dipstick) Normal (Negative); Leukocyte Negative Leu/uL (Negative); Protein, Urine (Dipstick) Negative (Neg-Trace); RBC/HPF 0-3 HPF (0-3); Specific Gravity, Urine 1.024 (1.002-1.036); WBC/HPF 0-3 HPF (0-3)
[2024-09-05 14:47] LABS: Urine Culture Reflex No No
[2024-09-05] MEDS ORDERED: Ketorolac Tromethamine 30 MG (1 mL) VIAL ONE (15:36)
[2024-09-05] MEDS ORDERED: Acetaminophen 500 MG TAB ONE (15:37)
== END 2024-09-05 16:18 | disposition home or self-care (01) ==
LOC: ERS 11:49
DX: R52 Pain, unspecified (principal); E11.9 Type 2 diabetes mellitus without complications; I10 Essential (primary) hypertension; F17.210 Nicotine dependence, cigarettes, uncomplicated; F17.290 Nicotine dependence, other tobacco product, uncomplicated
CPT/HCPCS: 36415; 71045; 80053; 80306; 80307; 81001; 85025; 87426; 93005; 96372; J1885; Q0162

== ENCOUNTER 2024-09-10 00:08 | Emergency (ER) | payer MEDICAID ==
[2024-09-10 00:55] LABS: #Basophils Less than 0.03 10x3/uL (0.0-0.2); #Eosinophils 0.19 10x3/uL (0.0-0.7); #Monocytes 0.28 10x3/uL (0.11-0.59); #Neutrophils 3.96 10x3/uL (1.40-6.50); %Basophils 0.2 % (0.0-1.0); %Eosinophils 2.9 % (0.0-10.0); %Lymphocytes 31.9 % (21.0-51.0); %Monocytes 4.3 % (0.0-10.0); %Neutrophils 60.2 % (42.0-75.0); Hematocrit 35.2 % (36.0-47.0); Hemoglobin 11.2 g/dL (12.0-16.0); Mean Corpuscular Hemoglobin 27.3 pg (27.0-31.0); Mean Corpuscular Volume 85.9 fL (78.0-98.0); Platelet Count 178 10x3/uL (130-400); Red Blood Cell (RBC) Count 4.10 mill/uL (4.20-5.40); White Blood Cell (WBC) Count 6.56 10x3/uL (4.8-10.8)
[2024-09-10 01:10] LABS: ALT (SGPT) 12 U/L (Less than 34); AST (SGOT) 16 U/L (11-34); Albumin 3.2 g/dL (3.1-4.5); Alkaline Phosphatase 94 U/L (40-110); Anion Gap 13 mmol/L (10-20); BUN (Urea Nitrogen) 24 mg/dL (9.8-20.1); Bilirubin, Total 0.3 mg/dL (0.3-1.2); Calc. Creatinine Clearance 0 mL/min (70-130); Calcium 8.9 mg/dL (7.8-10.44); Carbon Dioxide 25 mmol/L (22-29); Chloride 104 mmol/L (98-107); Globulin 4.7 g/dL (2.4-3.5); Glucose 112 mg/dL (70-105); Magnesium 1.1 mg/dL (1.6-2.6); Potassium 4.3 mmol/L (3.5-5.1); Sodium 138 mmol/L (136-145)
[2024-09-10 01:15] LABS: Troponin I Less than 0.010 ng/mL (< 0.028)
[2024-09-10] MEDS ORDERED: Magnesium 2 GM/50 ML BAG (IN WATER) ONE (01:22)
[2024-09-10] MEDS ORDERED: Cyclobenzaprine 10 MG TAB ONE (02:03)
[2024-09-10 04:42] LABS: Troponin I Less than 0.010 ng/mL (< 0.028)
[2024-09-10] MEDS ORDERED: Iopamidol 370 76% 100 ML VIAL ONE (09:40)
[2024-09-10] MEDS ORDERED: Acetaminophen 325 MG TAB ONE (09:55)
[2024-09-10] MEDS ORDERED: Gabapentin 300 MG CAP ONE (09:55)
[2024-09-10 10:14] LABS: Cocaine Metabolite Screen Negative (Negative); THC/Cannabinoid Screen PRELIM POSITIVE (Negative); Tricyclic Screen PRELIM POSITIVE (Negative)
[2024-09-10 10:20] LABS: Acetaminophen Less than 10 mcg/mL (Less than 10); Salicylate Less than 8.0 mg/dL (Less than 8.0)
== END 2024-09-10 16:52 ==
LOC: ERS 00:08
DX: R45.851 Suicidal ideations (principal); M79.7 Fibromyalgia; I10 Essential (primary) hypertension; E11.9 Type 2 diabetes mellitus without complications; E66.9 Obesity, unspecified; E78.5 Hyperlipidemia, unspecified; I25.10 Atherosclerotic heart disease of native coronary artery without angina pectoris; Z86.711 Personal history of pulmonary embolism; F17.210 Nicotine dependence, cigarettes, uncomplicated; F17.290 Nicotine dependence, other tobacco product, uncomplicated; Z79.84 Long term (current) use of oral hypoglycemic drugs; Z79.01 Long term (current) use of anticoagulants; Z79.899 Other long term (current) drug therapy
CPT/HCPCS: 36415; 71045; 71275; 80053; 80306; 80307; 83735; 83880; 84484; 85025; 85379; 93005; 93970; 96374; 96375; J2270; J3475; Q9967